=== PATIENT | female | born 1975 | race Two or more races ===

== ENCOUNTER 2019-05-16 08:09 | Emergency (ER) | payer OTHER ==
[~2019-05-16] VITALS: Ht 152.4 cm; Wt 60.8 kg
[~2019-05-16 08:09] MED LIST: ALAVERT10 MG; CIPRO500 MG PO; FLUCONAZOLE100 MG; IMODIUM A-D2 MG PO; INTESTINEX1 CAP PO; INTESTINEX680 MG PO; OMEPRAZOLE20 MG; PEPCID20 MG PO; PNEU16DI2; PYRIDIUM200 MG
== END 2019-05-16 09:18 | disposition home or self-care (01) ==
LOC: ER 08:09
DX: N39.0 Urinary tract infection, site not specified (principal)

== ENCOUNTER 2019-06-29 18:56 | Emergency (ER) | payer OTHER ==
[~2019-06-29] VITALS: Ht 154.9 cm; Wt 59.9 kg
== END 2019-06-29 20:59 | disposition home or self-care (01) ==
LOC: ER 18:56
DX: B86 Scabies (principal)

== ENCOUNTER 2019-10-30 13:33 | Emergency (ER) | payer OTHER ==
[~2019-10-30] VITALS: Ht 154.9 cm; Wt 60.8 kg
[2019-10-30] MEDS ORDERED: VENTOLIN HFA18 GM (13:54)
[2019-10-30] MEDS ORDERED: ZITHROMAX TRI-500 MG PO (18:26)
[2019-10-30] MEDS ORDERED: TESSALON PERLE100 M1 PO (18:26)
== END 2019-10-30 18:32 | disposition home or self-care (01) ==
LOC: ER 13:33
DX: B34.9 Viral infection, unspecified (principal)

== ENCOUNTER 2019-12-21 11:05 | Emergency (ER) | payer OTHER ==
[~2019-12-21] VITALS: Ht 154.9 cm; Wt 61.2 kg
[~2019-12-21 11:05] MED LIST changes: +TESSALON PERLE100 M1 PO; +VENTOLIN HFA18 GM; +ZITHROMAX TRI-500 MG PO
[2019-12-21] MEDS ORDERED: SYMBICORT 16010.2 GM (11:31)
[2019-12-21] MEDS ORDERED: SINGULAIR 10MG10 MG (11:32)
[2019-12-21] MEDS ORDERED: ZITHROMAX500 MG PO (13:57)
[2019-12-21] MEDS ORDERED: TESSALON PERLE100 MG PO (14:23)
== END 2019-12-21 14:44 | disposition home or self-care (01) ==
LOC: ER 11:05
DX: B34.9 Viral infection, unspecified (principal); B96.0 Mycoplasma pneumoniae [M. pneumoniae] as the cause of diseases classified elsewhere; Z03.818 Encounter for observation for suspected exposure to other biological agents ruled out

== ENCOUNTER 2020-03-04 18:57 | Emergency (ER) | payer OTHER ==
[~2020-03-04] VITALS: Ht 154.9 cm; Wt 59.0 kg
[~2020-03-04 18:57] MED LIST changes: +SINGULAIR 10MG10 MG; +SYMBICORT 16010.2 GM; +TESSALON PERLE100 MG PO; +ZITHROMAX500 MG PO
[2020-03-04] MEDS ORDERED: CLINDAMYCIN HC150 MG PO (21:04)
[2020-03-04] MEDS ORDERED: INTESTINEX680 M1 PO (21:04)
== END 2020-03-04 21:08 ==
LOC: ER 18:57
DX: L02.831 Carbuncle of head [any part, except face] (principal)

== ENCOUNTER 2020-05-04 10:25 | Emergency (ER) | payer OTHER ==
[~2020-05-04] VITALS: Ht 152.4 cm; Wt 59.0 kg
[~2020-05-04 10:25] MED LIST changes: +CLINDAMYCIN HC150 MG PO; +INTESTINEX680 M1 PO
== END 2020-05-04 13:52 | disposition home or self-care (01) ==
LOC: ER 10:25
DX: B34.9 Viral infection, unspecified (principal); Z03.818 Encounter for observation for suspected exposure to other biological agents ruled out

== ENCOUNTER 2021-05-26 17:00 | Emergency (ER) | payer OTHER ==
[~2021-05-26] VITALS: Ht 154.9 cm; Wt 52.2 kg
[2021-05-26] MEDS ORDERED: PYRIDIUM100 M1 PO (21:20)
[2021-05-26] MEDS ORDERED: CIPROFLOXACIN500 MG PO (21:20)
[2021-05-26] MEDS ORDERED: NAPROXEN375 MG PO (21:20)
== END 2021-05-26 21:24 | disposition home or self-care (01) ==
LOC: ER 17:00
DX: N39.0 Urinary tract infection, site not specified (principal); N30.90 Cystitis, unspecified without hematuria

== ENCOUNTER 2022-06-23 10:52 | Emergency (ER) | payer OTHER ==
[~2022-06-23] VITALS: Ht 154.9 cm; Wt 52.6 kg
[~2022-06-23 10:52] MED LIST changes: +CIPROFLOXACIN500 MG PO; +NAPROXEN375 MG PO; +PYRIDIUM100 M1 PO
[2022-06-23] MEDS ORDERED: LEVOTHYROXINE25 MCG PO (11:15)
[2022-06-23] MEDS ORDERED: XANAX0.25 MG (11:16)
== END 2022-06-23 14:53 | disposition home or self-care (01) ==
LOC: ER 10:52
DX: N39.0 Urinary tract infection, site not specified (principal); E03.9 Hypothyroidism, unspecified; Z88.0 Allergy status to penicillin; Z88.8 Allergy status to other drugs, medicaments and biological substances

== ENCOUNTER → 2024-05-06 | Emergency (ER) | payer OTHER ==
[~2024-05-06] VITALS: Ht 154.9 cm; Wt 56.7 kg
[~2024-05-06] MED LIST changes: +LEVOTHYROXINE25 MCG PO; +XANAX0.25 MG
== END | disposition left against medical advice (07) ==
LOC: ER 00:39
DX: Z53.21 Procedure and treatment not carried out due to patient leaving prior to being seen by health care provider (principal)

== ENCOUNTER 2024-08-01 12:55 | Emergency (ER) | payer OTHER ==
[~2024-08-01] VITALS: Ht 154.9 cm; Wt 56.7 kg
[2024-08-01] MEDS ORDERED: ONDANSETRON HCL 2 MG/ML VIAL IV STA (16:06)
[2024-08-01] MEDS ORDERED: 0.9 % SODIUM CHLORIDE 500 ML IV STA (16:07)
[2024-08-01] MEDS ORDERED: ONDANSETRON HCL 2 MG/ML VIAL ONE (16:12)
[2024-08-01 16:39] LABS: HEMATOCRIT 40.6 % (36.0-45.00); HEMOGLOBIN 13.3 g/dL (12.0-15.00); MEAN CELL VOLUME 85.6 fL (80.00-100.00); MEAN CORPUSCULAR HGB CONC 32.7 g/dl (32.0-36.0); PLATELET COUNT 145 K/uL (150-450); RED BLOOD COUNT 4.75 M/uL (4.00-6.00); RED CELL DISTRIBUTION WIDTH 16.1 % (11.5-14.5)
[2024-08-01] MEDS ORDERED: KETOROLAC TROMETHAMINE 15 MG VIAL IV STA (16:45)
[2024-08-01 16:56] LABS: CALCIUM 9.5 mg/dL (8.5-10.1); CREATININE SERUM 0.73 mg/dL (0.55-1.02); GFR 85.45; POTASSIUM 3.71 mEq/L (3.5-5.1)
[2024-08-01] MEDS ORDERED: KETOROLAC TROMETHAMINE 30 MG VIAL ONE (17:04)
[2024-08-01 17:55] LABS: URINE APPEARANCE Clear; URINE BILIRRUBIN Negative (NEGATIVE); URINE BLOOD Negative; URINE COLOR Yellow; URINE GLUCOSE Negative (NEGATIVE); URINE LEUKOCYTE Negative; URINE NITRATE Negative; URINE PROTEIN Negative (NEGATIVE); URINE UROBILINOGEN 0.2 E.U./dl
[2024-08-01 17:58] LABS: URINE BACTERIA 2447.8 uL (0.0-1933); URINE EPITHELIAL CELLS 20.1 uL (0.0-38.8); URINE RBC 13.5 uL (0.0-20.8); URINE WBC 37.9 uL (0.0-23.2)
[2024-08-01 18:19] LABS: URINE CAST 0.88 uL (0.0-1.40); URINE KETONE 40 (NEGATIVE)
== END 2024-08-01 20:47 | disposition home or self-care (01) ==
LOC: ER 12:57
PROVIDERS: Emergency Medicine
DX: K52.89 Other specified noninfective gastroenteritis and colitis (principal); E86.0 Dehydration; Z88.0 Allergy status to penicillin; Z91.041 Radiographic dye allergy status; Z88.2 Allergy status to sulfonamides; Z20.822 Contact with and (suspected) exposure to COVID-19

== ENCOUNTER 2025-01-28 09:36 | Emergency (ER) | payer OTHER ==
[~2025-01-28] VITALS: Ht 154.9 cm; Wt 59.0 kg
[2025-01-28] MEDS ORDERED: IPRATROPIUM BROMIDE 0.5 MG/2.5 ML AMPUL.NEB IH SCH (11:15)
[2025-01-28] MEDS ORDERED: BUDESONIDE 0.5 MG/2 ML AMPUL.NEB IH ONE ×2 (11:15→11:27)
[2025-01-28] MEDS ORDERED: GUAIFEN/DEXTROMETHORPHAN/PE 10 ML BLIST.PACK PO ONE ×2 (11:15→11:24)
[2025-01-28] MEDS ORDERED: LEVALBUTEROL HCL 1.25 MG/3 ML SOLUTION IH SCH (11:15)
[2025-01-28] MEDS ORDERED: LEVALBUTEROL HCL 1.25 MG/3 ML SOLUTION IH ONE (11:27)
[2025-01-28] MEDS ORDERED: IPRATROPIUM BROMIDE 0.5 MG/2.5 ML AMPUL.NEB IH ONE (11:27)
[2025-01-28 11:33] LABS: BASO % 0.4 % (0.1-1.2); EOS # 0.01 (0.04-0.54); EOS % 0.2 % (0.7-7.0); LYMPH # 0.92 (1.18-3.74); LYMPH % 16.9 % (19.3-53.1); MEAN PLATELET VOLUME 11.80 fl (9.4-12.4); MONO # 0.39 (0.24-0.82); MONO % 7.2 % (4.7-12.5); NEUT # 4.10 (1.56-6.13); NEUT % 75.3 % (34.0-71.1); RED CELL DISTRIBUTION WIDTH 13.0 % (11.6-14.4)
[2025-01-28 12:56] LABS: COVID-19 AG NEGATIVE (NEGATIVE)
[2025-01-28] MEDS ORDERED: ZITHROMAX TRI-500 MG PO (12:59)
[2025-01-28] MEDS ORDERED: ACETAMINOPHEN500 M1 PO (12:59)
[2025-01-28] MEDS ORDERED: GILTUSS COUGH-118 M1 PO (12:59)
[2025-01-28] MEDS ORDERED: BUDESONIDE0.5 MG/2 M IH (13:09)
== END 2025-01-28 13:15 | disposition home or self-care (01) ==
LOC: ER 09:36
PROVIDERS: Preventive Medicine Public Health & General Preventive Medicine
DX: J06.9 Acute upper respiratory infection, unspecified (principal); Z20.822 Contact with and (suspected) exposure to COVID-19; E03.9 Hypothyroidism, unspecified; Z88.0 Allergy status to penicillin; Z88.8 Allergy status to other drugs, medicaments and biological substances; Z87.09 Personal history of other diseases of the respiratory system